=== PATIENT | male | born 1995 | race African-American/Black ===

== ENCOUNTER 2018-09-05 21:08 | Emergency (ER) | payer MEDICAID, OTHER ==
[~2018-09-05] VITALS: Ht 182.9 cm; Wt 91.0 kg
[2018-09-06 00:42] VITALS: BP 125/72
== END 2018-09-06 00:42 | disposition home or self-care (01) ==
LOC: ER 21:08
DX: R21 Rash and other nonspecific skin eruption (principal); L29.8 Other pruritus; F17.200 Nicotine dependence, unspecified, uncomplicated; Z91.041 Radiographic dye allergy status
CPT/HCPCS: 99283